=== PATIENT | female | born 1990 | race Caucasian/White ===

== ENCOUNTER → 2016-10-13 | Outpatient (CLI) | payer OTHER ==
[~2016-10-13] MED LIST: ACET-1256 PO; ATR25 PO; CLIN300C2 PO; IBUP-1050 PO; LRT5 PO; METH4PAK4 PO; OXYC1TAB3 PO; PRENTAB26 PO
== END | disposition home or self-care (01) ==
LOC: C.PAPS 15:50
PROVIDERS: ATTEND Obstetrics & Gynecology
DX: Z12.4 Encounter for screening for malignant neoplasm of cervix (principal)

== ENCOUNTER → 2016-10-13 | Outpatient (CLI) | payer OTHER ==
[2016-10-13 19:18] LABS: HEMATOCRIT 40.7 % (37-47); MEAN CELL VOLUME 82.9 fL (80-100); MEAN CORPUSCULAR HEMOGLOBIN 28.9 pg (25-34); MEAN CORPUSCULAR HGB CONC 34.9 g/dl (32-36); MEAN PLATELET VOLUME 9.9 fL (7.4-10.4); PLATELET COUNT 311 K/uL (130-400); RED BLOOD COUNT 4.91 M/uL (4.2-5.4); WHITE BLOOD COUNT 6.69 K/uL (4.8-10.8)
[2016-10-13 19:41] LABS: ALT/SGPT 16 U/L (12-78); BLOOD UREA NITROGEN 7 mg/dl (7-18); BUN/CREATININE RATIO 12.8 (10-20); CALCIUM 9.3 mg/dl (8.5-10.1); CARBON DIOXIDE 29 mmol/L (21-32); CHLORIDE 105 mmol/L (98-107); CREATININE 0.57 mg/dl (0.60-1.20); GLUCOSE 92 mg/dl (70-99); POTASSIUM 3.7 mmol/L (3.5-5.1); SODIUM 142 mmol/L (136-145)
[2016-10-13 19:52] LABS: ALKALINE PHOSPHATASE 106 U/L (45-117); AST/SGOT 14 U/L (15-37); THYROID STIMULATING HORMONE 0.944 uIu/ml (0.300-4.500)
== END | disposition home or self-care (01) ==
LOC: C.LAB 18:39
PROVIDERS: ATTEND Obstetrics & Gynecology
DX: N92.5 Other specified irregular menstruation (principal); E66.3 Overweight

== ENCOUNTER → 2016-10-13 | Outpatient (CLI) | payer OTHER ==
[2016-10-15 21:15] LABS: CHLAMYDIA TRACH RNA*** NOT DETECTED (NOT DETECTED); GC (NEIS GONORRHOEAE)RNA** NOT DETECTED (NOT DETECTED)
== END | disposition home or self-care (01) ==
LOC: C.LABSPEC 14:40
PROVIDERS: ATTEND Obstetrics & Gynecology
DX: N92.5 Other specified irregular menstruation (principal)

== ENCOUNTER 2017-04-10 14:51 | Emergency (ER) | payer SELFPAY ==
[~2017-04-10] VITALS: Ht 165.1 cm; Wt 84.2 kg
[~2017-04-10 14:51] MED LIST changes: -CLIN300C2 PO; -IBUP-1050 PO; -OXYC1TAB3 PO
[2017-04-10 14:55] VITALS: TEMP 36.8; Ht 165.1 cm; Wt 84.2 kg
--- NOTE | 2017-04-10 15:21 | EMERGENCY ROOM VISIT NOTE ---
ED Visit Note First contact with patient: 15:07 CHIEF COMPLAINT: Toothache HISTORY OF PRESENT ILLNESS: This 26-year-old female patient presented to the emergency department with a progressive toothache for past few weeks. The patient believes it is coming from very back left lower molar. The pain is now steady and severe and radiates to the face. The patient has a dentist appointment set up a week from today. They rate their pain a 9/10 and the ibuprofen and Tylenol they have been taking has not relieved the pain. Denies facial swelling or fever. The patient does note a foul smell in her mouth. Her dentist prescribed her clindamycin for infection. they plan on pulling the tooth next week. REVIEW OF SYSTEMS: A 6 system review of systems was completed with positives and pertinent negatives listed in the HPI. ALLERGIES: No known drug allergies MEDICATIONS: Clindamycin PMH: Otherwise healthy SOCIAL HISTORY: Positive for tobacco, occasional alcohol use. PHYSICAL EXAM: Vitals are noted on the nurse's note and reviewed by myself. Vital signs stable. Temperature 36.8C orally. GENERAL: 26-year-old female, in no acute distress, nondiaphoretic, well-developed well-nourished. Mouth: The left lower molar is very carious and the gum is swollen and tender around it , without any discharge. The remainder of the pharynx and tonsils are without erythema, edema, or exudate. The airway is patent. There is no facial swelling , cervical or submandibular lymphadenopathy. The patient appears uncomfortable and in pain. The patient has overall fair dental hygiene. EARS: External auditory canals clear, tympanic membranes pearly velarde without erythema or effusion bilaterally. ED COURSE: The patient was seen and examined. Discharge injections were reviewed, and the patient was discharged in good condition DIAGNOSIS: Odontalgia DISCHARGE INSTRUCTIONS & TREATMENT: Please continue the antibiotics as prescribed. It is recommended that you do a probiotic while on these antibiotics. Also please eat yogurt daily. Follow-up with the dentist as scheduled. Ibuprofen 800 mg and/or Tylenol 1000 mg every 8 hours. You may also alternate these medications for more effective pain relief: Ibuprofen --4 HRS--> Tylenol --4 HRS--> ibuprofen --4 HRS--> Tylenol .... Oxycodone Immediate Release (OxyIR) 5mg: Take 1/2 pill every four hours for pain. Avoid alcohol, operating machinery or dangerous equipment, working on ladders or roofs, DRIVING, or situations where being under the influence may be dangerous. It is recommended to use an [id number] stool softener such as Colace, 100mg twice daily while taking this medication to avoid constipation. The emergency department will not refill narcotic medications. It is recommended that you use them sparingly. You will need to contact her primary care provider or your dentist for any further need for pain medication. Please return to the emergency department with any severe facial swelling or fever.
[2017-04-10] MEDS ORDERED: IBUP-1050 PO (15:26)
[2017-04-10] MEDS ORDERED: OXYC1TAB3 PO (15:27)
[2017-04-10 15:30] VITALS: BP 139/74; PULSE 84; O2SAT 100
[2017-04-10] MEDS ORDERED: CLIN300C2 PO (15:30)
== END 2017-04-10 15:30 | disposition home or self-care (01) ==
LOC: C.EDB 14:52 → C.EDD 15:30
DX: K08.89 Other specified disorders of teeth and supporting structures (principal); F17.200 Nicotine dependence, unspecified, uncomplicated